=== PATIENT | male | born 1990 | race African-American/Black ===

== ENCOUNTER 2019-09-08 04:14 | Emergency (ER) | payer SELFPAY ==
[~2019-09-08] VITALS: Ht 182.9 cm; Wt 83.0 kg
--- NOTE | 2019-09-08 04:20 | NUR ---
THIS IS A 29 Y M BIB EMS FOUND BEHIND BAR PASSED OUT. ESTRADA CALLED EMS WHEN HE TOOK THE GARBAGE OUT AND FOUND PT NEAR DUMPSTER. PT ARRIVED TO ED UNCOUNSCIOUS AND MANAGING AIRWAY WELL.
[2019-09-08] MEDS ORDERED: SODIUM CHLORIDE 0.9% 1,000 ML IV ONE (04:45)
[2019-09-08] MEDS ORDERED: NALOXONE 0.4 MG/ML, 1ML IVPush PRN (05:00)
[2019-09-08] MEDS ORDERED: PLEASE ENTER ALLERGIES MC SCH (05:00)
[2019-09-08] MEDS ORDERED: SODIUM CHLORIDE FLUSH 10ML SYR IVF ONE (05:00)
[2019-09-08] MEDS ORDERED: ONDANSETRON 2MG/ML, 2ML IVPush PRN (05:30)
--- NOTE | 2019-09-08 05:30 | NUR ---
PER CT PT UNABLE TO SIT FOR TEST HE IS VOMITING PA DINA
[2019-09-08 05:42] LABS: BASOPHILS # (AUTO) 0.05 x10^3/uL (0-0.1); BASOPHILS % (AUTO) 0 % (0-1); EOSINOPHILS % (AUTO) 0 % (1-7); LYMPHOCYTES # (AUTO) 2.62 x10^3/uL (1-3.4); LYMPHOCYTES % (AUTO) 18 % (22-44); MD NO; MEAN CORPUSCULAR HEMOGLOBIN 29.4 pg (27.5-34.5); MEAN CORPUSCULAR HGB CONC 32.9 g/dL (33.2-36.2); MEAN CORPUSCULAR VOLUME 89.4 fL (81-97); MEAN PLATELET VOLUME 9.5 fL (7.4-10.4); MONOCYTES # (AUTO) 0.73 x10^3/uL (0.2-0.8); MONOCYTES % (AUTO) 5 % (2-9); NEUTROPHILS # (AUTO) 11.28 x10^3/uL (1.8-6.8); NEUTROPHILS % (AUTO) 77 % (42-75); PLATELET COUNT 261 x10^3/uL (130-400); RED BLOOD COUNT 5.14 x10^6/uL (4.38-5.82)
[2019-09-08] MEDS ORDERED: ONDANSETRON 2MG/ML, 2ML ONE (05:48)
[2019-09-08 05:51] LABS: ALANINE AMINOTRANSFERASE 214 U/L (12-78); ALBUMIN 3.9 g/dL (3.4-5.0); ANION GAP 7 mmol/L (5-15); CALCIUM 8.9 mg/dL (8.5-10.1); CHLORIDE 106 mmol/L (98-107); CREATININE 1.02 mg/dL (0.7-1.3)
[2019-09-08 05:53] LABS: ALKALINE PHOSPHATASE 109 U/L (45-117); BILIRUBIN,TOTAL 0.3 mg/dL (0.2-1.0); TOTAL PROTEIN 8.1 g/dL (6.4-8.2)
--- NOTE | 2019-09-08 06:26 | NUR ---
PT RESTING ON GURNEY STILL DEEPLY ASLEEP MANAGING AIRWAY BUT DOES NOT AROUSE TO VERBAL/ PAINFUL STIMULI MD AWARE
--- NOTE | 2019-09-08 07:07 | NUR ---
Report recieved from Kaci CHRISTINE
--- NOTE | 2019-09-08 07:46 | NUR ---
urine collected, pt resting in bed.
[2019-09-08 08:24] LABS: AMPHETAMINE SCREEN, URINE Negative (Negative); BARBITURATE SCREEN, URINE Negative (Negative); BENZODIAZEPINE SCREEN, URINE Negative (Negative); CANNABINOID SCREEN, URINE Negative (Negative); COCAINE SCREEN, URINE Positive (Negative); METHADONE SCREEN, URINE Negative (Negative); OPIATE SCREEN, URINE Negative (Negative)
--- NOTE | 2019-09-08 08:41 | NUR ---
PT refusing ct scan. Oma Contreras notified.
--- NOTE | 2019-09-08 09:34 | NUR ---
Po water provided, tolerated well. PT steady ambulation to bathroom.
[2019-09-08 09:37] VITALS: BP 128/69
--- NOTE | 2019-09-08 09:39 | NUR ---
ER NEELAM Ying at bedside to discuss POC. Discharge instructions reviewed.
== END 2019-09-08 10:03 | disposition home or self-care (01) ==
LOC: ED 07:46
DX: F10.220 Alcohol dependence with intoxication, uncomplicated (principal); F14.10 Cocaine abuse, uncomplicated; Y90.9 Presence of alcohol in blood, level not specified
CPT/HCPCS: 36415; 80053; 80307; 85025; 99285